=== PATIENT | male | born 1990 | race African-American/Black ===

== ENCOUNTER 2023-09-06 18:58 | Emergency (ER) | payer SELFPAY ==
[~2023-09-06] VITALS: Ht 182.9 cm; Wt 111.3 kg
[2023-09-06] MEDS ORDERED: IBUP-1456 PO (21:15)
[2023-09-06] MEDS ORDERED: KETOROLAC TROMETH 60MG/2ML VIAL IM ONE (21:15)
[2023-09-06] MEDS ORDERED: CYCL-837 PO (21:15)
[2023-09-06 22:15] VITALS: BP 136/86; PULSE 88; RESP 18; TEMP 98; O2SAT 97
== END 2023-09-06 22:27 | disposition home or self-care (01) ==
LOC: ER 18:58
DX: S16.1XXA Strain of muscle, fascia and tendon at neck level, initial encounter (principal); S00.83XA Contusion of other part of head, initial encounter; S20.20XA Contusion of thorax, unspecified, initial encounter; S63.502A Unspecified sprain of left wrist, initial encounter; Y04.2XXA Assault by strike against or bumped into by another person, initial encounter; Y93.89 Activity, other specified; Y92.410 Unspecified street and highway as the place of occurrence of the external cause; Y99.8 Other external cause status
CPT/HCPCS: 29125; 70450; 70486; 71045; 72125; 73110; 73130; 96372; 99285; J1885

== ENCOUNTER 2023-09-07 20:07 | Emergency (ER) | payer SELFPAY ==
[~2023-09-07] VITALS: Ht 180.3 cm; Wt 106.8 kg
[~2023-09-07 20:07] MED LIST: CYCL-837 PO; IBUP-1456 PO
[2023-09-07] MEDS ORDERED: ONDANSETRON ODT 4 MG TAB PO ONE (22:15)
[2023-09-07] MEDS ORDERED: MORPHINE SULFATE INJ 2 MG/ml SYRG IM ONE (22:15)
[2023-09-08 00:33] VITALS: BP 128/86; PULSE 80; RESP 18; TEMP 98.2; O2SAT 96
== END 2023-09-08 00:36 | disposition home or self-care (01) ==
LOC: ER 20:07
DX: S20.20XA Contusion of thorax, unspecified, initial encounter (principal); Y08.89XA Assault by other specified means, initial encounter; Y93.89 Activity, other specified; Y92.89 Other specified places as the place of occurrence of the external cause; Y99.8 Other external cause status
CPT/HCPCS: 71250; 96372; 99285; J2270; Q0162